=== PATIENT | male | born 1965 | race Two or more races ===

== ENCOUNTER 2024-05-21 15:42 | Outpatient (RCR) | payer MEDICAID, SELFPAY | END 2024-05-28 23:59 | disposition home or self-care (01) | LOC: SCTC 15:42 | PROVIDERS: PCP Physician Assistant; Referring Provider Physician Assistant; Visit Provider Nurse Practitioner Family | DX: D47.3 Essential (hemorrhagic) thrombocythemia (principal); Z79.82 Long term (current) use of aspirin | CPT/HCPCS: 99212; G0463 ==

== ENCOUNTER → 2024-06-06 | Outpatient (CLI) | payer MEDICAID, SELFPAY ==
--- NOTE | 2024-06-06 09:55 | XR_ITS ---
Examination: Knee, right , 3 views Technique: Knee AP, lateral, oblique 3 views Date and time of exam: June 07, 2019 5:10 AM Indications: Right knee pain and bruising beginning 8 days ago Findings: Mild narrowing medial joint space Moderate knee effusion Mild osteoarthritis patellofemoral joint No fracture Impression: Osteoarthritis as above Small knee effusion No fracture
== END | disposition home or self-care (01) ==
PROVIDERS: PCP Physician Assistant; Referring Provider Nurse Practitioner Family; Visit Provider Nurse Practitioner Family
DX: M17.11 Unilateral primary osteoarthritis, right knee (principal); M25.461 Effusion, right knee
CPT/HCPCS: 73562

== ENCOUNTER 2024-09-08 11:35 | Emergency (ER) | payer MEDICAID, SELFPAY ==
[2024-09-08 11:48] VITALS: BP 177/83; PULSE 77; RESP 19; TEMP 36.9; O2SAT 96; BMI 28.0
--- NOTE | 2024-09-08 12:05 | XR_ITS ---
Examination: Right femur 2 views Technique one AP lateral right femur 2 views Date and time: September 08, 2024, 1223 hrs. Indications: Right femur pain 2 weeks. Findings: No hip fracture or hip dislocation Moderate narrowing hip joint Shaft of the femur intact Impression: Moderate right hip osteoarthritis No fracture
--- NOTE | 2024-09-08 12:06 | XR_ITS ---
Examination: Duplex scan of the lower extremity, unilateral right Date and time of exam: 09/08/2024 1233 pm Inidcaitons : leg swelling and pain today Technique: Duplex scan of the extremity veins using B-mode/grayscale imaging and Doppler spectral analysis and color flow Attention is directed to internal echogenicity, compression and augmentation involving these veins, color flow assessment, spectral analysis Findings: Major deep venous structures in the extremity demonstrate normal course and caliber. There is no evidence of deep vein thrombosis. Normal color flow and spectral analysis Impression: Negative for DVT..
--- NOTE | 2024-09-08 12:06 | EDNOTE_ITS ---
<Statement entered by Masha Lucas MD - 09/09/24 21:40> As co-signing physician, I was present and available for consult prn. I concur with the plan and care as documented by the midlevel provider. ED Extremity Problem RME/HPI General Chief complaint: Extremity Problem,Nontraumatic Stated complaint: RIGHT UPPER THIGH PAIN Time Seen by Provider: 09/08/24 11:38 Arrival date/time: 09/08/24 11:35 RME / HPI RME / HPI Narrative: 58-year-old male patient with significant history of hypertension, came in for evaluation regarding right medial thigh swelling and pain. Is been ongoing for the last few days. Severity of symptoms moderate. Patient is ambulatory. Patient denies any redness. Patient denies any trauma denies any fall denies any fever denies any other complaints no medication was taken prior to arrival. Related Data Home Medications ?Medication ?Instructions ?Recorded ?Confirmed hydrochlorothiazide 25 mg tablet 25 mg PO QAM #0 tabs 06/05/13 lisinopril 5 mg tablet 5 mg PO QDAY ##0 06/05/13 Allergies Allergy/AdvReac Type Severity Reaction Status Date / Time NKA* Allergy Uncoded 09/08/24 11:39 Review of Systems Review of Systems Narrative Review of Systems: Review of system reviewed and within normal limits except mentioned in HPI ED Exam Narrative Physical exam: VITAL SIGNS: Reviewed. GENERAL APPEARANCE: Alert and interactive, follows commands, no acute distress, HEAD AND FACE: Non-traumatic. ENT: PERRL, pink conjunctivitis, eyelid no trauma, Mucous membrane moist. NECK: Supple, nontender, no nuchal rigidity. CHEST: No tenderness, no crepitus, no paradoxical movement, no retractions. LUNGS: Clear, well ventilated, symmetric, no rales, no wheezing, no ronchi, no stridor, good breath sounds bilaterally. HEART: Regular rate, regular rhythm, no murmur, no gallops. ABDOMEN: Soft, positive bowel sounds, nondistended, no guarding, nontender, no rebound, no masses, RECTAL: Deferred. GENITAL: Deferred. NEUROLOGICAL: Gross motor function intact sensory function intact, Appropriate for age. MUSCULOSKELETAL: low back nontender, full range of motion. EXTREMITIES: Right medial thigh swelling, no redness with tenderness no masses palpated, full range of motion. Distal neurovascular status intact bilateral lower extremity SKIN: Color pink, dry, no rash, no lacerations, no abrasions, no contusions. LYMPHATICS: Deferred. Course Quality Measures none Orders Category Date Time Status CT Screening NOW Care 09/08/24 13:54 Completed US venous doppler LE RT Stat Exams 09/08/24 12:06 Completed XR femur RT 2V Stat Exams 09/08/24 12:05 Completed CBC [CBC] Stat Lab 09/08/24 12:33 Completed CMP [Comprehensive Metabolic Panel] Stat Lab 09/08/24 12:33 Completed PTT [Partial Thromboplastin Time] Stat Lab 09/08/24 12:33 Completed Acetaminophen Tab [Tylenol ES Tab] Med 09/08/24 12:05 Discontinued 1,000 mg PO X1 ONE Vital Signs Vital signs: Vital Signs Temperature 98.4 F 09/08/24 11:48 Pulse Rate 77 09/08/24 11:48 Respiratory Rate 19 09/08/24 11:48 Blood Pressure 177/83 H 09/08/24 11:48 Pulse Oximetry (%) 96 09/08/24 11:48 Oxygen Delivery Method Room Air 09/08/24 11:48 Extremity Problem MDM Narrative MDM Narrative:: 58-year-old male patient with significant history of hypertension, came in for evaluation regarding right medial thigh swelling and pain. Is been ongoing for the last few days. Severity of symptoms moderate. Patient is ambulatory. Patient denies any redness. Patient denies any trauma denies any fall denies any fever denies any other complaints no medication was taken prior to arrival. Ultrasound of the lower extremities negative for DVT. Patient's CBC also showed no leukocytosis noted. I ordered for a CT scan of the lower extremity however patient eloped from the emergency room Patient data External records reviewed:: None Clinical information provided by:: patient and family Social determinants that could affect healthcare access:: none Patient has the following chronic illnesses:: Hypertension How is presenting disease/condition affected by chronic disease/condition?: no chronic disease Evaluation data The following diagnostics were reviewed and interpreted by me:: lab results and radiology exam(s) Lab and/or radiology exams considered but not ordered:: None Interpretation Summary: See results MDM Medications / Prescriptions Medications or Prescriptions considered but not ordered:: None Medication administrations:: Medication Administration History Discontinued Medications Acetaminophen (Acetaminophen 500 Mg Tablet) 1,000 mg PO X1 ONE Stop: 09/08/24 12:06 Last Admin: 09/08/24 12:11 Dose: 1,000 mg Documented By: KIMMIE Tylenol Consultations Consultation(s) initiated? (list below): No Diagnosis Extremity Problem Differential Diagnosis: lower extremity edema and deep vein thrombosis of lower extremity Most likely diagnosis given after review of the tests above:: Left thigh swelling Admission Indicated Admission indicated?: not indicated Admission Request Was there a request for admission?: No Disposition Plan Disposition Plan: other (specify) (Elopement) Discharge Plan Plan Patient Disposition: Elopement Prescriptions/Referrals Prescriptions/Med Rec: No Action lisinopril 5 MG tablet 5 mg PO QDAY Qty: 0 hydrochlorothiazide 25 MG tablet 25 mg PO QAM Qty: 0 Referrals: Brooklynn Orr PA-C [Primary Care Provider] - In 1 week Problem List Clinical Impression: Swelling of thigh Patient/Caregiver Discharge Instructions Print Language: Malawian
[2024-09-08] MEDS: ACETAMINOPHEN 500 MG TABLET 1000 MG PO (12:11)
[2024-09-08 12:42] LABS: Basophils # (Auto) 0.1 Thou/mm3 (0.0-0.2); Basophils % (Auto) 1 % (0-2.5); Eosinophils # (Auto) 0.4 Thou/mm3 (0.0-0.5); Eosinophils % (Auto) 4 % (0-10); Hematocrit 41.2 % (41.0-53.0); Hemoglobin 14.3 g/dL (13.5-16.0); Immature Granulocytes Auto 0.08 Thou/mm3 (0.00-0.00); Lymphocytes # (Auto) 1.1 Thou/mm3 (1.0-4.8); Lymphocytes % (Auto) 10 % (10-50); Mean Corpuscular HGB Conc 34.7 g/dl (31.0-37.0); Mean Corpuscular Hemoglobin 29.3 pg (25.0-35.0); Mean Corpuscular Volume 84 fL (80-100); Monocytes # (Auto) 0.9 Thou/mm3 (0.0-0.8); Monocytes % (Auto) 8 % (0-12); Neutrophils # (Auto) 7.8 Thou/mm3 (1.8-7.7); Neutrophils % (Auto) 76 % (37-80); Nucleated Red Blood Cell # 0.00 Thou/mm3 (0.00-0.00); Nucleated Red Blood Cell % 0 /100 WBC (0); Platelet Count 601 Thou/mm3 (140-440); RDW Standard Deviation 42.7 fL (35.1-43.9); Red Blood Count 4.88 Miln/mm3 (4.50-5.90); White Blood Count 10.3 Thou/mm3 (3.8-10.6)
[2024-09-08 12:56] LABS: Partial Thromboplastin Time 30.8 Seconds (22.0-36.0)
[2024-09-08 13:01] LABS: Alanine Aminotransferase 34 U/L (10-49); Albumin, Serum 4.6 gm/dL (3.4-4.8); Albumin/Globulin Ratio 1.9 (1.2-2.2); Alkaline Phosphatase 93 U/L (46-116); Anion Gap 8 (7-16); Aspartate Amino Transferase 20 U/L (0-34); BUN/Creatinine Ratio 25 Ratio (12-20); Bilirubin,Total 0.7 mg/dL (0.3-1.2); Blood Urea Nitrogen 15 mg/dL (9-23); Calcium 9.2 mg/dL (8.3-10.6); Calcium (Corrected) 9.2 mg/dL (8.5-10.1); Carbon Dioxide 26.2 mMol/L (20.0-31.0); Chloride 104 mMol/L (98-107); Creatinine (Component) 0.6 mg/dL (0.6-1.3); Estimated Creatinine Clearance 129.4 mL/min (>60); Globulin 2.4 gm/dL (2.3-3.5); Glucose 125 mg/dL (74-106); Osmolality,Calculated 277 (275-295); Potassium 3.7 mMol/L (3.4-5.1); Sodium 138 mMol/L (136-145); Total Protein 7.0 gm/dL (5.7-8.2); eGFR > 60 See Note
--- NOTE | 2024-09-08 15:33 | PC.NURSE ---
CALLED FOR PT FROM LOBBY/OUTSIDE, NO ANSWERX1@ [phone]
--- NOTE | 2024-09-08 15:48 | PC.NURSE ---
CALLED FOR PT FROM LOBBY/OUTSIDE, NO ANSWERX2@ [phone]
--- NOTE | 2024-09-08 16:34 | PC.NURSE ---
PAtient NAx3 @ 1533, 1548 and 1555. Patient eloped ED lobby.
== END 2024-09-08 16:34 | disposition left against medical advice (07) ==
PROVIDERS: Nurse Practitioner Family; Emergency Provider Family Medicine; PCP Physician Assistant
DX: R22.41 Localized swelling, mass and lump, right lower limb (principal); M79.651 Pain in right thigh
CPT/HCPCS: 36415; 73552; 80053; 85025; 85730; 93971; 99283; A9270

== ENCOUNTER 2024-11-21 15:02 | Outpatient (RCR) | payer MEDICAID, SELFPAY ==
--- NOTE | 2024-11-26 02:49 | CTCFLWUP_ITS ---
Patient: ARMIDA CADE : 1965 Page 2 of 3 FOLLOW UP NOTE DATE OF SERVICE: 11/21/2024 NAME: ARMIDA CADE ACCOUNT: [id number] : 1965 AGE: 59 INTERVAL HISTORY: I am seeing Mr. Cade today for follow-up for essential thrombocytopenia Bebeto 2 positive. Patient is taking aspirin 81 mg p.o. daily. Patient remains asymptomatic. Patient reports he only came to his appointment today for refills for aspirin 81 mg. Patient continues to decline initiation of treatment for essential thrombocytopenia such as hydroxyurea. His reasoning is that he feels well and he does not want to start a medication that has side effects. Patient is aware of risk of not starting treatment such as thrombosis such as stroke myocardial infarction, DVT, pulmonary embolism and disease progression, bleeding risk. Patient continues to decline treatment. Patient was extensively counseled and prescribed hydroxyurea. ONCOLOGY HISTORY: DIAGNOSIS: Mild asymptomatic JAK2 positive essential thrombocythemia DATE OF DIAGNOSIS: 08/08/2020 STAGE/TNM: Essential thrombocytosis TREATMENT HISTORY: Care?Plan Start?Date Cycle Day Intent HISTORY OF PRESENT ILLNESS: PREVIOUS NOTE: Armida Brady is a 59-year-old [place] speaking male with history of hypertension is referred to hematology clinic for mild asymptomatic thrombocytosis. 08/08/2020: Platelet count 630,000 (150?450), hemoglobin 15.6, MCV 89, WBC 7.2, ANC 59% 10/02/2020: Platelet 624,000, hemoglobin 14.1, WBC 9.5. ANC 6.2. Iron saturation 26% and ferritin is 73. 10/23/2020: Platelet 651,000, hemoglobin 14.7, WBC 9.3, ANC 6.4. 06/24/2021: Platelet count 669,000, WBC 8.2, ANC 4.5, hemoglobin 16.4. 11/06/2021: Platelet count 605,000, WBC 8.1, ANC 4.4, hemoglobin 15.3. 12/04/2021: JAK2 mutation analysis? 10/11/2022: Platelet count is 632,000, hemoglobin 14.5, MCV 86, WBC 9.1, ANC 6.3. 05/12/2023: Platelet count is 683,000, hemoglobin is 15.9, MCV is 87, WBC is 9.1, ANC is 5.8 11/08/2023: Platelet count 683,000, hemoglobin 16.4, MCV 88, WBC 7.8, ANC 4.2 OTHER MEDICAL HISTORY/CONDITIONS: FAMILY HISTORY: SOCIAL HISTORY: VP [employer] HISTORY: MEDICATIONS: 1. Adult Aspirin Regimen - 81 mg 1 tab Daily 2. aspirin - 81 mg 1 tab Daily 3. hydrochlorothiazide - 25 mg 1 tab Daily 4. hydroxyurea - 500 mg 1 Capsule Daily 5. Norvasc - 2.5 mg Daily Medications Last Reconciled by Jaqui Welch MD on 11/22/2024 ALLERGIES: No Known Drug Allergies REVIEW OF SYSTEMS: A complete 14-point review of systems was performed and is negative except as noted in interval history. PHYSICAL EXAMINATION: VITAL SIGNS: Temperature?97.6, B/P?156/79, Oxygen?Saturation?96% Weight?175?lbs PAIN: 0 - No pain GENERAL APPEARANCE: Appears well, in no apparent distress, appropriately interactive. HEENT: Normocephalic, no temporal wasting, normal conjunctiva, no scleral icterus, normal hearing, lips without lesions, neck normal range of motion. CARDIOVASCULAR: Not assessed. PULMONARY: Normal respiratory effort, no respiratory distress or use of accessory muscles, speaking in full sentences, no tachypnea. EXTREMITIES: No pedal edema or cyanosis. SKIN: Normal skin appearance. NEUROLOGIC: Alert and oriented x4. PSHYCHIATRIC: Appropriate affect, mood normal, behavior normal, intact thought and speech. LABORATORY DATA: I have personally reviewed and interpreted each of the patient?s relevant lab tests, abnormal findings are below: Date 09/08/24 ??WHITE?BLOOD?COUNT?(Thou/mm3) 10.3 ??RED?BLOOD?COUNT?(Miln/mm3) 4.88 ??HEMOGLOBIN?(gm/dl) 14.3 ??HEMATOCRIT?(%) 41.2 ??PLATELET?COUNT?(Thou/mm3) 601?H ??NEUTROPHILS?%,?AUTO?(%) 76 ??LYMPH?%,?AUTO?(%) 10 ??NEUTROPHILS,?AUTO?(Thou/mm3) 7.8?H ??GLUCOSE,RANDOM?(mg/dL) 125?H ??BLOOD?UREA?NITROGEN?(mg/dL) 15 ??CREATININE?(mg/dL) 0.60 ??SODIUM?(mmol/L) 138 ??POTASSIUM?(mmol/L) 3.7 ??CHLORIDE?(mmol/L) 104 ??CrCl?(CandG)?(ml/min) 159.60 ??AST/SGOT?(Unit/L) 20 ??ALT/SGPT?(Unit/L) 34 ??ALKALINE?PHOSPHATASE?(Unit/L) 93 ??BILIRUBIN,?TOTAL?(mg/dL) 0.7 ??PROTEIN?TOTAL?(gm/dl) 7.0 ??ALBUMIN,?SERUM?(gm/dl) 4.6 ??GLOBULIN?(gm/dl) 2.4 ??ALBUMIN/GLOBULIN?RATIO 1.9 ??CALCIUM,?SERUM?(mg/dL) 9.2 ??CALCIUM?SERUM?(CORRECTED)?(mg/dL) 9.2 ASSESSMENT/PLAN: 1. Mild asymptomatic JAK2 mutation positive essential thrombocythemia. Patient aware that now that he is 58 years of age he is considered high risk. Patient states he only came to his appointment today because he needs refills for aspirin, does not want to start any treatments for essential thrombocythemia. Patient continues to decline initiation of treatment for essential thrombocytopenia such as hydroxyurea. His reasoning is that he feels well and he does not want to start a medication that has any potential side effects. Patient is aware of risk of not starting treatment such as thrombosis such as stroke myocardial infarction, DVT, pulmonary embolism and disease progression, bleeding risk. Patient continues to decline treatment. Patient aware of risk leading up to potential . Since patient does not want to start treatment patient advised to get a second opinion for treatment options, patient is refusing to referral for second opinion for treatment options, reports he does not want to travel anywhere outside of [place], does not want to do to do telemedicine with another clinic for second opinion such as Dr. Romeo's office. Taking aspirin 81 mg p.o. daily. Refill sent for aspirin 81 mg p.o. daily. Prescription sent for hydroxyurea and extensively counseled to take 1 tablet a day. ORDERS: Order # Description [id number] Follow Up 3 Months + Comprehensive Metabolic Panel - 12 + CBC with Auto Diff RETURN TO CLINIC: I reviewed the diagnosis, prognosis, and recommended treatment/procedure options with the patient (and/or their legal client relations representative), including the potential benefits, risks, side effects and alternative therapies. We also discussed the option of no treatment and the possibility of clinical trial participation, if applicable. All questions were addressed, and they demonstrated understanding. They provided informed consent to proceed with the proposed plan of care. BILLING AND COMPLIANCE: I reviewed external records from providers outside my specialty as summarized above. I spent a total of 50 minutes on this patient?s care on the day of their visit excluding time spent related to any billed procedures. This time includes time spent with the patient as well as time spent documenting in the medical record, reviewing patients records and tests, obtaining history, placing orders, communicating with other healthcare professionals, counseling the patient, family or caregiver, and/or care coordination for the diagnoses above. Electronically Signed by: Arnaud Nelson MD T: 2:47 AM CC: PCP: Brooklynn Sanchez Referring: Brooklynn Sanchez This document was completed utilizing speech recognition software. Grammatical errors, random word insertions, pronoun errors, and incomplete sentences are an occasional consequence of this system due to software limitations, ambient noise, and hardware issues. Any formal questions or concerns about the content, text or information contained within the body of this dictation should be directly addressed to the provider for clarification.
== END 2024-11-27 23:59 | disposition home or self-care (01) ==
LOC: SCTC 15:02
PROVIDERS: PCP Physician Assistant; Referring Provider Physician Assistant; Visit Provider Internal Medicine Hematology & Oncology
DX: D47.3 Essential (hemorrhagic) thrombocythemia (principal); Z79.82 Long term (current) use of aspirin
CPT/HCPCS: 99212; G0463